=== PATIENT | female | born 1980 | race Caucasian/White ===

== ENCOUNTER → 2020-11-28 | Emergency (ER) | payer MEDICAID ==
[~2020-11-28] VITALS: Ht 167.6 cm; Wt 68.0 kg
--- NOTE | 2020-11-28 11:29 | NUR ---
patient brouth via ambulance. on dx of type one DM, and low bs 22mg/dl, dextrose given iv via ambulance personel now bs-202mg/dl. iv access intact on left ac area. seen ER md will follow up .
--- NOTE | 2020-11-28 11:35 | NUR ---
patient stable and willing to d/c home after md seen, and explained life- threatening emergency, boy- friend is next to the bed . offered some snack, and ordered lunch.
[2020-11-28 11:41] VITALS: BP 130/67
--- NOTE | 2020-11-28 11:44 | NUR ---
patient discharge at this time going home patient refused lunch, family is next to the bed to pickup. patient stable vs wnl, educated patient disease process, medication intack, and cansuming because of hypoglycemia. patient verbalized understanding, sign poaperwork. patient will follow up with pcp.
== END | disposition home or self-care (01) ==
LOC: ER 10:56
DX: E10.649 Type 1 diabetes mellitus with hypoglycemia without coma (principal); Z88.1 Allergy status to other antibiotic agents
CPT/HCPCS: 82962-TC